=== PATIENT | female | born 1950 | race Two or more races ===

== ENCOUNTER 2020-12-20 07:59 | Outpatient (REF) | payer MEDICARE, SELFPAY ==
--- NOTE | ~2020-12-20 | MM_ITS ---
EXAMINATION: MM SCREENING DIGITAL BREAST TOMOSYNTHESIS, BILATERAL CLINICAL INFORMATION: Screening. Asymptomatic. The lifetime risk of breast cancer based on the Tyrer-Cuzick Model is 3%. COMPARISON: Mammography: 10/05/2019, 12/30/2017, 04/12/2016, 03/15/2015, 03/09/2014, 03/04/2013 TECHNIQUE: Digital breast tomosynthesis is performed in both the craniocaudal and mediolateral oblique views along with computer-aided detection (CAD). Synthesized 2D images are generated from the tomosynthesis. FINDINGS: There are scattered areas of fibroglandular density (ACR BI-RADS breast composition Category b). Breast tissue composition borders on predominantly fatty. Scattered stromal densities on left are stable. Neither breast shows abnormal calcifications. The bilateral axilla and skin contours are unremarkable. Right MLO view has asymmetric density upper breast mid depth likely summation artifact. There are also some stromal densities posterior outer right breast close to the film [id number]. Patient will be recalled for additional imaging. MM/MM tomosynthesis screening BI IMPRESSION: 1. Right: Asymmetric density upper quadrant on MLO view, likely summation artifact. 2. Left: No mammographic evidence of malignancy. ASSESSMENT: BI-RADS 0: Incomplete - Need Additional Imaging Evaluation RECOMMENDATION: 1. Additional views of the right breast (3D MLO-changed angle view; 3D ML; 3D exaggerated CC). 2. Targeted ultrasound if warranted after review of the additional views. 3. Radiology department staff will contact the patient for additional imaging. This patient's information was entered into a reminder system with a target due date for their next mammogram.
== END 2020-12-20 08:00 | disposition home or self-care (01) ==
LOC: HO.MAMMO 07:59
PROVIDERS: PCP Internal Medicine Geriatric Medicine; Visit Provider Internal Medicine Geriatric Medicine
DX: Z12.31 Encounter for screening mammogram for malignant neoplasm of breast (principal)
CPT/HCPCS: 77063; 77067

== ENCOUNTER 2020-12-29 13:23 | Outpatient (REF) | payer MEDICARE, SELFPAY ==
--- NOTE | ~2020-12-29 | MM_ITS ---
EXAMINATION: MM DIAGNOSTIC DIGITAL BREAST TOMOSYNTHESIS, RIGHT CLINICAL INFORMATION: Recall from screening for asymmetric density mid upper right breast on MLO view, suspected summation artifact. COMPARISON: Mammography: 12/20/2020, 10/05/2019, 12/30/2017, 04/12/2016 TECHNIQUE: Digital breast tomosynthesis is performed. 2D images are generated from the tomosynthesis. The following views are obtained: ML, MLO, exaggerated CC. FINDINGS: There are scattered areas of fibroglandular density (ACR BI-RADS breast composition Category b). The additional ML and MLO views show no persistent asymmetric density in the upper right breast. The stromal markings appear similar to prior studies. Finding on recent imaging was most likely summation artifact as suspected. Results are discussed with the patient at time of visit, using an industrial seamstress. MM/MM tomosynthesis added views R IMPRESSION: Additional views show no persistent asymmetric density upper right breast. No significant changes from prior exams. ASSESSMENT: BI-RADS 2: Benign RECOMMENDATION: Routine annual mammography screening. This patient's information was entered into a reminder system with a target due date for their next mammogram.
== END 2020-12-29 13:24 | disposition home or self-care (01) ==
LOC: HO.MAMMO 13:23
PROVIDERS: Visit Provider Internal Medicine Geriatric Medicine
DX: R92.2 Inconclusive mammogram (principal)
CPT/HCPCS: 77061; 77065

== ENCOUNTER → 2021-02-23 07:54 | Outpatient (REF) | payer MEDICARE, SELFPAY ==
--- NOTE | ~2021-02-23 | NM_ITS ---
Lexiscan Myocardial perfusion study Indication: Cardiomyopathy, chest pain, shortness of breath, assess for coronary disease and ischemia Technique: The patient was brought in for a Lexiscan perfusion study on 02/23/2021 and was injected 0.4 mg of Lexiscan intravenously. Within a minute of this injection 25 mCi of sestamibi was given intravenously. Images were obtained using the SPECT gamma camera interlaced with the gating device. Images were obtained in supine position. Resting perfusion study was performed on 02/26/2021. Patient was administered 25 mCi of sestamibi intravenously at rest. Images were then obtained in supine position. Total DLP 99mGy-cm. Images were processed with the software and compared side to side in short axis, horizontal long axis and vertical long axis views. Findings: Raw acquisition was reviewed. The stress perfusion study showed diminished tracer uptake at the distal septum and adjacent anterior septum. Similar pattern in the attenuation corrected images. The gated study shows diminished LV systolic function with calculated LVEF of 30%. LV cavity is dilated in size. The gated study shows globally diminished wall thickening and contraction of segments. Resting study shows diminished tracer uptake in the apical part of anterior septum. Pattern is similar with CT attenuation corrected images. Gating at rest reveals globally diminished contractility with ejection fraction at 20%. The findings are consistent with no reversible defects; fixed distal septal/anterior septal defect that could be from prior infarct versus artifactual. NM/NM raymond perf SPECT rest & str Impression: 1. Myocardial perfusion imaging study shows no evidence of any ischemia. Fixed defect in the distal septum and adjacent anterior septum that could be from prior infarct or artifactual. 2. Gated LVEF is 30% during stress and 20% during rest. Correlate with echocardiogram. 3. Transient ischemic dilatation not present. EKG component of the test reported separately.
--- NOTE | 2021-02-23 08:00 | CA_ITS ---
Acquisition Time: 2021-02-23 08:55:03 Total Exercise Time: 00:02:00 Test Indications: I44.7 LBBB Medications: Protocol: LEXISCAN Max HR: 130 BPM 87% of Pred: 149 BPM Max BP: 128/080 mmHG Max Work Load: 1.0 METS Pharmacological stress test with Lexiscan injection, while sitting and not moving, without anginal symptoms, without arrythmia, with normotensive response to injection, with nondiagnostic EKG for ischemia. In recovery she had an elevated heart rate and was treated with Aminophylline 75mg IVP to reverse lexiscan with improvement in heart rate. Nuclear images pending. Test reviewed with Dr Shukla. Referred By: Ezekiel Hadley Overread By: YESENIA QUAN
== END ==
LOC: HO.CARD 07:54
PROVIDERS: PCP Internal Medicine Geriatric Medicine; Visit Provider Internal Medicine Cardiovascular Disease
DX: I44.7 Left bundle-branch block, unspecified (principal); I42.9 Cardiomyopathy, unspecified; R07.9 Chest pain, unspecified; R06.02 Shortness of breath
CPT/HCPCS: 78452; 93017; A9500; J0280; J2785

== ENCOUNTER 2021-10-08 09:48 | Outpatient (REF) | payer MEDICARE, SELFPAY ==
--- NOTE | ~2021-10-08 | XR_ITS ---
EXAMINATION: XR CHEST CLINICAL INFORMATION: Shortness of breath COMPARISON: Previous chest x-ray March 2016 TECHNIQUE: 2 views of the chest were obtained. FINDINGS: The cardiac silhouette is upper normal in size but stable. The thoracic aorta is calcified and tortuous but appears unchanged. Hilar and mediastinal contours are otherwise unremarkable. The lungs are clear. There is no pleural effusion or pneumothorax. There are degenerative changes of the spine. XR/XR chest 2V IMPRESSION: No evidence for acute disease in the chest. Upper normal-size cardiac silhouette and calcified tortuous thoracic aorta similar to previous exam.
== END 2021-10-08 09:49 | disposition home or self-care (01) ==
LOC: HO.XRAY 09:48
PROVIDERS: PCP Internal Medicine Geriatric Medicine; Visit Provider Internal Medicine Geriatric Medicine
DX: R06.02 Shortness of breath (principal)
CPT/HCPCS: 71046

== ENCOUNTER 2022-01-15 14:38 | Outpatient (REF) | payer OTHER, SELFPAY ==
--- NOTE | 2022-01-15 | PFT_ITS ---
Forced vital capacity 76%, FEV1 75%, FEV1/FVC ratio is 75, [id number] 71%, and MVV 31%. Post bronchodilator therapy, there is no change. Total lung capacity 73%. Residual volume 67%. Diffusion capacity 51%. CONCLUSION: Moderately severe restrictive pulmonary disorder. No significant obstructive airway disorder. No response to bronchodilator therapy. Clinical correlation is recommended. MD NEDA Miguel/MODL / [id number]
--- NOTE | ~2022-01-15 | MM_ITS ---
EXAMINATION: MM SCREENING DIGITAL BREAST TOMOSYNTHESIS, BILATERAL CLINICAL INFORMATION: Screening. Asymptomatic. The lifetime risk of breast cancer based on the Tyrer-Cuzick Model is 3%. COMPARISON: Mammography: 12/29/2020, 12/20/2020, 10/05/2019 TECHNIQUE: Digital breast tomosynthesis is performed in both the craniocaudal and mediolateral oblique views along with computer-aided detection (CAD). Synthesized 2D images are generated from the tomosynthesis. FINDINGS: There are scattered areas of fibroglandular density (ACR BI-RADS breast composition Category b). The left breast is unremarkable. There is no developing density or interval mass or architectural abnormality. Neither breast shows abnormal calcifications. The skin contours are smooth. The right breast has new grouped fibronodular densities posterior upper outer quadrant approximately 10 cm from nipple overall area approximately 1.3 x 3.3 cm. The mid posterior upper outer quadrant has some accentuated stromal markings again seen, slightly increased in attenuation since prior imaging. Patient will be recalled for additional evaluation. MM/MM tomosynthesis screening BI IMPRESSION: Right: -New grouped fibronodular densities posterior upper outer quadrant. -Accentuated stromal markings mid posterior upper outer quadrant. Left: -No mammographic evidence of malignancy. ASSESSMENT: BI-RADS 0: Incomplete - Need Additional Imaging Evaluation RECOMMENDATION: 1. Additional views of the right breast (rolled CC, spot exaggerated CC, MLO, spot MLO). 2. Targeted ultrasound right breast. 3. Radiology department staff will contact the patient for additional imaging. This patient's information was entered into a reminder system with a target due date for their next mammogram.
== END 2022-01-15 14:39 | disposition home or self-care (01) ==
LOC: HO.RESP 14:38
PROVIDERS: PCP Internal Medicine Geriatric Medicine; Visit Provider Internal Medicine Geriatric Medicine
DX: R06.02 Shortness of breath (principal); F17.210 Nicotine dependence, cigarettes, uncomplicated; Z79.899 Other long term (current) drug therapy; Z12.31 Encounter for screening mammogram for malignant neoplasm of breast
CPT/HCPCS: 77063; 77067; 94060; 94727; 94729

== ENCOUNTER → 2022-01-18 20:26 | Outpatient (REF) | payer OTHER, SELFPAY | LOC: HO.SL 20:26 | PROVIDERS: PCP Internal Medicine Geriatric Medicine; Visit Provider Internal Medicine Geriatric Medicine | DX: G47.33 Obstructive sleep apnea (adult) (pediatric) (principal); G47.19 Other hypersomnia; R06.02 Shortness of breath; R06.83 Snoring | CPT/HCPCS: 95811 ==

== ENCOUNTER 2022-02-06 13:08 | Outpatient (REF) | payer OTHER, SELFPAY ==
--- NOTE | ~2022-02-06 | MM_ITS ---
EXAMINATION: MM DIAGNOSTIC DIGITAL BREAST TOMOSYNTHESIS, RIGHT US DIAGNOSTIC ULTRASOUND BREAST, RIGHT CLINICAL INFORMATION: Recall from screening for interval changes right breast mid posterior upper outer quadrant and posterior upper outer quadrant. COMPARISON: Mammography: 01/15/2022, 12/29/2020, 12/20/2020, 10/05/2019, 12/30/2017, 04/12/2016 TECHNIQUE: Digital breast tomosynthesis is performed. 2D images are generated from the tomosynthesis. The following views are obtained: Rolled CC x2, ML, spot exaggerated CC x2, spot MLO. Ultrasound right breast is targeted to the upper and outer quadrant and axilla. Grayscale imaging and color Doppler are performed without and with harmonics. FINDINGS: Mammography: There are scattered areas of fibroglandular density (ACR BI-RADS breast composition Category b). The additional views show new grouped fibronodular densities posterior upper outer breast approximately 10 cm from nipple representing change from prior study. The mid outer breast 6 cm from nipple shows some accentuated stromal markings without three-dimensional mass, or approximately 6 cm from nipple. Findings represent change from prior exams. Ultrasound: Ultrasound demonstrates scattered small hypoechoic nodularity under 0.7 cm 10-12 cm from nipple. There is no increased or decreased through transmission of sound. No internal color flow. Some of the nodularity appear irregular in shape, others macrolobulated. These likely correspond to the grouped nodularity on mammography. There is a vague irregular hypoechoic nodule 0.5 cm with surrounding hyperechogenicity 6-8 cm from nipple which may correspond to the subtle accentuated stromal marking on mammography. There is a benign node right axilla within 4 cm of the nodularity with normal gurpreet architecture and color flow. Management: Results are discussed with the patient at time of visit using an dance hall hostess. Ultrasound-guided core biopsy is recommended directed to two separate sites to allow for provider relations representative sampling of the multiple findings. Recommendation called to medical staff services coordinator (Misti) for Dr. Lehman on 02/06/2022. MM/MM tomosynthesis added views R IMPRESSION: -New grouped fibronodular densities posterior upper outer right breast. -Accentuated stromal markings without three-dimensional mass mid upper outer right breast. -Scattered small nonspecific nodularity and hypoechoic lesions on ultrasound. ASSESSMENT: BI-RADS 4: Suspicious RECOMMENDATION: Ultrasound-guided core biopsy directed to 2 separate sites to allow for provider relations representative sampling of the multiple findings.
--- NOTE | ~2022-02-06 | US_ITS ---
EXAMINATION: MM DIAGNOSTIC DIGITAL BREAST TOMOSYNTHESIS, RIGHT US DIAGNOSTIC ULTRASOUND BREAST, RIGHT CLINICAL INFORMATION: Recall from screening for interval changes right breast mid posterior upper outer quadrant and posterior upper outer quadrant. COMPARISON: Mammography: 01/15/2022, 12/29/2020, 12/20/2020, 10/05/2019, 12/30/2017, 04/12/2016 TECHNIQUE: Digital breast tomosynthesis is performed. 2D images are generated from the tomosynthesis. The following views are obtained: Rolled CC x2, ML, spot exaggerated CC x2, spot MLO. Ultrasound right breast is targeted to the upper and outer quadrant and axilla. Grayscale imaging and color Doppler are performed without and with harmonics. FINDINGS: Mammography: There are scattered areas of fibroglandular density (ACR BI-RADS breast composition Category b). The additional views show new grouped fibronodular densities posterior upper outer breast approximately 10 cm from nipple representing change from prior study. The mid outer breast 6 cm from nipple shows some accentuated stromal markings without three-dimensional mass, or approximately 6 cm from nipple. Findings represent change from prior exams. Ultrasound: Ultrasound demonstrates scattered small hypoechoic nodularity under 0.7 cm 10-12 cm from nipple. There is no increased or decreased through transmission of sound. No internal color flow. Some of the nodularity appear irregular in shape, others macrolobulated. These likely correspond to the grouped nodularity on mammography. There is a vague irregular hypoechoic nodule 0.5 cm with surrounding hyperechogenicity 6-8 cm from nipple which may correspond to the subtle accentuated stromal marking on mammography. There is a benign node right axilla within 4 cm of the nodularity with normal gurpreet architecture and color flow. Management: Results are discussed with the patient at time of visit using an hourly sign language interpreter. Ultrasound-guided core biopsy is recommended directed to two separate sites to allow for self pay representative sampling of the multiple findings. Recommendation called to medical assistant dermatology (iMsti) for Dr. Lehman on 02/06/2022. US/US breast RT limited IMPRESSION: -New grouped fibronodular densities posterior upper outer right breast. -Accentuated stromal markings without three-dimensional mass mid upper outer right breast. -Scattered small nonspecific nodularity and hypoechoic lesions on ultrasound. ASSESSMENT: BI-RADS 4: Suspicious RECOMMENDATION: Ultrasound-guided core biopsy directed to 2 separate sites to allow for self pay representative sampling of the multiple findings.
== END 2022-02-06 13:09 | disposition home or self-care (01) ==
LOC: HO.MAMMO 13:08
PROVIDERS: Visit Provider Internal Medicine Geriatric Medicine
DX: R92.2 Inconclusive mammogram (principal)
CPT/HCPCS: 76642; 77061; 77065

== ENCOUNTER 2022-02-08 09:18 | Outpatient (REF) | payer OTHER, SELFPAY ==
--- NOTE | ~2022-02-08 | US_ITS ---
EXAMINATION: ULTRASOUND GUIDED CORE BIOPSY BREAST (TWO SITES), RIGHT POST PROCEDURE DIGITAL MAMMOGRAM, RIGHT CLINICAL INFORMATION: Mammographic and ultrasound findings mid and posterior upper outer right breast for tissue sampling. COMPARISON: Mammography 02/06/2022, 01/15/2022, 12/29/2020, 12/20/2020, 10/05/2019; targeted right breast ultrasound 02/06/2022. FINDINGS: Proper informed consent is obtained from the patient after discussion of the procedure, potential risks and complications, and alternatives. Patient was given an opportunity for questions. The patient appeared to understand. The patient consented to the procedure and signed the consent form. Hospital provided mobile equipment mechanic assisted for consent and throughout the procedure. SPECIMEN A: LOCATION: Mid upper outer right breast, 6 cm from nipple. GUIDANCE: Ultrasound-guided; aseptic technique. LESION: Subtle hypoechoic lesion with irregular margins under 5 mm and surrounding mild increased echogenicity upper outer quadrant, 6 cm from nipple. APPROACH: Lateral medial. ANESTHESIA: 15 mL carbonated 1% lidocaine. DERMATOTOMY: Single skin nikia dermatotomy performed. NEEDLE: 14-gauge Achieve core biopsy device with 13.5-gauge co-axial guide needle. CORES: 5. CLIP: HydroMARK; shape: barrel. SPECIMEN B: New anesthesia and biopsy supplies are used. LOCATION: Posterior upper outer right breast, 11 cm from nipple. GUIDANCE: Ultrasound-guided; aseptic technique. LESION: Small hypoechoic nodularity posterior upper outer right breast under 8 mm with subtle surrounding mild increased echogenicity, 11 cm from nipple. APPROACH: Lateral medial. ANESTHESIA: 10 mL carbonated 1% lidocaine. DERMATOTOMY: A new skin nikia dermatotomy is performed to allow for the second site of biopsy. . NEEDLE: 14-gauge Achieve core biopsy device with 13.5-gauge co-axial guide needle. CORES: 7. CLIP: HydroMARK; shape: open coil. POST PROCEDURE DIGITAL MAMMOGRAM: The post biopsy mammogram is performed in separate room using separate digital mammography equipment from the biopsy procedure. Exaggerated CC x3 and MLO views are obtained. There are scattered areas of fibroglandular density (breast composition category: b). The clip markers are in position. No gross hematoma. The patient tolerated the procedure well. No immediate complications. Home instructions reviewed with the patient. Final pathology results are pending. US/US breast ndl core biopsy RT IMPRESSION: 1. Status post ultrasound-guided core biopsy right breast at 2 sites, mid upper outer quadrant and posterior upper outer quadrant. 2. Pathology pending. An addendum report will be issued.
[2022-02-08] MEDS: Lidocaine HCl 1 % 20 ML VIAL 25 ML SUBCUT (11:47)
[2022-02-08] MEDS: Sodium Bicarbonate 8.4% 50 MEQ/50 ML VIAL SUBCUT (11:49)
== END 2022-02-08 09:19 | disposition home or self-care (01) ==
LOC: HO.MAMMO 09:18
PROVIDERS: PCP Internal Medicine Geriatric Medicine; Visit Provider Surgery
DX: C50.411 Malignant neoplasm of upper-outer quadrant of right female breast (principal); Z17.0 Estrogen receptor positive status [ER+]
CPT/HCPCS: 19083; 77062; 77065; 88305; 88360; 99202; A4648

== ENCOUNTER → 2022-02-13 09:23 | Outpatient (BNVA) | payer OTHER, SELFPAY | PROVIDERS: PCP Internal Medicine Geriatric Medicine; Visit Provider Surgery | DX: C50.411 Malignant neoplasm of upper-outer quadrant of right female breast (principal); Z17.0 Estrogen receptor positive status [ER+]; Z98.890 Other specified postprocedural states | CPT/HCPCS: 99212 ==

== ENCOUNTER 2022-03-15 12:20 | Outpatient (REF) | payer OTHER, SELFPAY ==
--- NOTE | ~2022-03-15 | MR_ITS ---
EXAMINATION: MR BREAST WITHOUT AND WITH CONTRAST, BILATERAL CLINICAL INFORMATION: The final pathology results from ultrasound-guided right breast biopsy mid, upper, outer 6 cm from nipple is invasive ductal carcinoma. The final pathology result from ultrasound-guided biopsy right breast, posterior, upper, outer 11 cm from nipple is invasive ductal carcinoma. MRI for multifocal disease. COMPARISON: None Mammography (nondiagnostic monitor review): 01/15/22. TECHNIQUE: A 1.5 T system and a dedicated breast coil. T1-weighted sequences without fat-saturation were obtained prior to the administration of contrast. Fat-saturated T1 and T2-weighted sequences were also acquired. The patient received 8 mL of IV gadolinium-based contrast, Gadavist. Multiple sequential dynamic T1-weighted sequences were obtained through both breasts with fat-saturation. Subtracted images were reviewed. CAD postprocessing with 3-D reconstructions, maximum intensity projections and kinetic analysis was performed by the interpreting radiologist at an independent workstation and reviewed as a portion of this exam. FINDINGS: Amount of Remaining Fibroglandular Signal: There are scattered areas of fibroglandular tissue (ACR BI-RADS breast composition category B).* Background Parenchymal Enhancement: Moderate Symmetry of Background Enhancement: Symmetric RIGHT BREAST: There is extensive heterogeneous nonmass enhancement spanning between the tissue marker clips in the upper outer right breast consistent with extensive malignancy spanning at least 6 cm from anterior to posterior and at least 4 cm from medial to lateral. The abnormal enhancement abuts but does not definitely invade the chest wall. The abnormal enhancement extends to within 8 mm of the nearest skin surface laterally but there is no definite skin thickening or abnormal skin enhancement. The enhancement extends to within 4.8 cm of the nipple. There is susceptibility artifact associated with a fairly circumscribed oval enhancing mass. This could be secondary to biopsy of an intramammary lymph node which was involved by regional metastasis. There are several other lymph nodes in the tail of the breast and axilla which are not enlarged by size criteria. There is however a prominent axillary lymph node (series 101, image 32). Masses: There are no other suspicious enhancing masses. Non-mass Enhancement: There is no other suspicious non-mass enhancement. Focus: There are a few nonspecific enhancing foci Non-enhancing Findings: Associated findings: Susceptibility artifact. Kinetic Curve Assessment: Initial Phase: Extensive abnormal color signal throughout the upper outer right breast Delayed Phase: There are areas of washout present in the upper outer right breast LEFT BREAST: There are no suspicious findings. Masses: There are no suspicious enhancing masses. Non-mass Enhancement: There is no suspicious non-mass enhancement. Focus: There are several tiny nonspecific enhancing foci Non-enhancing Findings: Associated Findings: There are no suspicious associated findings. Kinetic Curve Assessment: Initial Phase: There are no areas of suspicious color signal. Delayed Phase: There are no areas of washout kinetics. The left axillary lymph nodes are morphologically normal. No suspicious internal mammary lymph nodes are seen. There is a crescent-shaped signal abnormality in the medial right upper mediastinum abutting the ascending aorta which measures 3.5 x 1.7 cm. This is intermediate signal on anatomic series and somewhat intermediate signal on fluid sensitive series. This does not appear to significantly enhance. MR/MR breast BI wo/w con IMPRESSION: Extensive nonmass enhancement with areas of washout spanning the tissue between the tissue markers in the upper outer right breast. I suspect cancer involves this entire area. The enhancement extends close to the skin and chest wall fascia without definite evidence of invasion. No convincing involvement of the nipple areolar complex. I suspect some intramammary lymph node involvement. There is at least one enlarged axillary lymph node. Consider whether ultrasound-guided sampling would alter management There is a signal abnormality abutting the ascending aorta. Although this does not enhance is nonspecific. If there is no previous chest CT I recommend a chest CT with contrast for further characterization ASSESSMENT: Right Breast: ACR BI-RADS 6: Known biopsy-proven malignancy. Left Breast: ACR BI-RADS 2: Benign finding. RECOMMENDATIONS: Take appropriate action. Consider chest CT for signal abnormality abutting the ascending aorta which does not enhance and is felt relatively unlikely to represent an aggressive malignancy
== END 2022-03-15 12:21 | disposition home or self-care (01) ==
LOC: HO.MRI 12:20
PROVIDERS: Visit Provider Internal Medicine
DX: C50.411 Malignant neoplasm of upper-outer quadrant of right female breast (principal)
CPT/HCPCS: 77049; A9585

== ENCOUNTER → 2022-03-21 09:08 | Outpatient (BNVA) | payer OTHER, SELFPAY | PROVIDERS: PCP Internal Medicine Geriatric Medicine; Visit Provider Surgery | DX: C50.411 Malignant neoplasm of upper-outer quadrant of right female breast (principal); Z17.0 Estrogen receptor positive status [ER+]; Z98.890 Other specified postprocedural states | CPT/HCPCS: 99212 ==

== ENCOUNTER 2022-04-09 08:21 | Outpatient (REF) | payer OTHER, SELFPAY ==
[2022-04-09 09:24] LABS: Blood Urea Nitrogen 17 mg/dL (9-16); Estimated Glomerular Filt Rate 51
== END 2022-04-09 08:22 | disposition home or self-care (01) ==
LOC: HO.LAB 08:21
PROVIDERS: PCP Internal Medicine Geriatric Medicine; Visit Provider Internal Medicine
DX: C50.911 Malignant neoplasm of unspecified site of right female breast (principal)
CPT/HCPCS: 36415; 82565; 84520

== ENCOUNTER 2022-04-10 07:57 | Outpatient (REF) | payer OTHER, SELFPAY ==
--- NOTE | ~2022-04-10 | CT_ITS ---
EXAMINATION: CT CHEST WITH CONTRAST CLINICAL INFORMATION: Breast cancer. Follow-up mediastinal mass breast MRI COMPARISON: Breast MRI February 2022 TECHNIQUE: Multidetector volumetric CT imaging of the chest was obtained after the administration of 65 mL of Omnipaque 350 intravenous contrast without immediate adverse reactions. Axial MIP volume rendering provided. Sagittal and coronal reformatted images were obtained. This CT examination was performed using dose optimization techniques as appropriate, variously including the following: *Automated exposure control *Adjustment of mA and/or kV according to patient size (this includes techniques or standardized protocols for targeted exams where dose is matched to indication/reason for exam; i.e. extremities or head) *Use of iterative reconstruction technique DLP: 140 mGy-cm FINDINGS: LUNGS: The lungs are clear with no evidence of inflammation or nodules. MEDIASTINUM: The heart size is normal. There does not appear to be significant coronary artery calcification. There is no pericardial effusion. The thoracic aorta is tortuous. The distal ascending thoracic aorta is dilated measuring up to 4.3 cm. The aortic arch is dilated injuring up to 3.4 cm. There is luminal irregularity axial image 11 series 3 questionable for small ulcer or irregular appearing plaque in the aortic arch. Descending thoracic aorta appears tortuous but normal in caliber. There is a small amount of low-attenuation crescent-shaped soft tissue seen surrounding the ascending thoracic aorta probably representing fluid. Hounsfield units measure 15 following post contrast. No definite adenopathy. PLEURA: There is no pleural effusion. No pleural mass or thickening. AXILLA: Right breast findings as per recent MRI. Normal-appearing left chest wall and axilla. UPPER ABDOMEN: There is a stenosis at the origin of the celiac axis is stenotic station. OSSEOUS STRUCTURES: There are old or healing left anterior second through fifth rib fractures. There are degenerative changes of the spine. CT/CT chest w IV con IMPRESSION: Dilated distal aortic ascending thoracic aorta and aortic arch. Question small ulceration in the aortic arch versus ulcer. Small amount of fluid seen in the mediastinum surrounding the ascending thoracic aorta. Cardiology or vascular consultation recommended. 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 Old or healing left rib fractures. Fleischner guidelines were followed.
[2022-04-10] MEDS: iohexoL 350 MG/ML 100 ML INFUS..BTL IV (08:48)
== END 2022-04-10 07:58 | disposition home or self-care (01) ==
LOC: HO.CT 07:57
PROVIDERS: Visit Provider Internal Medicine
DX: C50.411 Malignant neoplasm of upper-outer quadrant of right female breast (principal); R22.2 Localized swelling, mass and lump, trunk
CPT/HCPCS: 71260; Q9967

== ENCOUNTER → 2022-04-23 11:08 | Outpatient (BNVA) | payer OTHER, SELFPAY | PROVIDERS: PCP Internal Medicine Geriatric Medicine; Visit Provider Surgery | DX: C50.411 Malignant neoplasm of upper-outer quadrant of right female breast (principal) | CPT/HCPCS: Q3014 ==

== ENCOUNTER → 2022-07-11 11:17 | Outpatient (BNVA) | payer OTHER, SELFPAY | PROVIDERS: PCP Internal Medicine Geriatric Medicine; Visit Provider Surgery | DX: C50.411 Malignant neoplasm of upper-outer quadrant of right female breast (principal) | CPT/HCPCS: 99212 ==

== ENCOUNTER 2022-08-14 09:26 | Outpatient (REF) | payer OTHER, SELFPAY ==
--- NOTE | ~2022-08-14 | MR_ITS ---
EXAMINATION: MR BREAST WITHOUT AND WITH CONTRAST, BILATERAL CLINICAL INFORMATION: Known right breast carcinoma. Assess response to hormonal therapy. COMPARISON: Bilateral breast MRI 03/15/2022 TECHNIQUE: Imaging was performed with a dedicated breast coil. Prior to the administration of contrast, bilateral axial T1 and bilateral axial T2 weighted sequences were obtained. After the uneventful administration of?8 mL of Gadavist, dynamic contrast-enhanced VIBRANT series through the breasts in the axial plane were performed. Subtracted images were performed and reviewed. A delayed sagittal sequence through both breasts was acquired. Additionally, CAD post-processing, including maximum intensity projections, 3-D reconstructions and kinetic analysis, were performed an independent workstation and reviewed by the interpreting radiologist is a portion of this exam. FINDINGS: The patient's fibroglandular tissue demonstrates no significant background enhancement. LEFT BREAST: No suspicious masslike or non-masslike enhancement. No abnormal skin thickening or nipple retraction. No abnormal architectural distortion. Review of the T2 weighted images demonstrates no fibrocystic changes or dilated ducts. Review of kinetic images reveals no additional findings. RIGHT BREAST: There is a clip containing nonmasslike area of abnormal enhancement, correlating to the known right breast malignancy in the 10:00 position, posterior depth, this currently measures 4.7 x 1.6 cm in size, overall the extent of abnormal enhancement and abnormal tissue in this location has decreased. The enhancing portion of this mass extends to within 0.9 cm of the pectoralis fashion there is persistent skin retraction, slightly less pronounced than on the prior exam. There is no new enhancing mass or nipple retraction present. There is no suspicious internal mammary chain or axillary adenopathy. Again noted is intermediate fluid signal contour abnormality anterior to the asymmetry and ending aorta, when compared to supine chest CT, position of this finding has change with prone patient positioning, suggesting this is mobile fluid within a pericardial effusion. MR/MR breast BI wo/w con IMPRESSION: Interval decrease in size of right breast carcinoma in the 10:00 position. ASSESSMENT: LEFT BREAST: BI-RADS 1-Negative RIGHT BREAST: BI-RADS 6, known malignancy is present. RECOMMENDATIONS: Persistent, irregularly shaped nonmasslike enhancement, in the 10:00 position, consistent with known right breast carcinoma, the area of enhancement has decreased in size as compared to prior of February 2022.
== END 2022-08-14 09:27 | disposition home or self-care (01) ==
LOC: HO.MRI 09:26
PROVIDERS: PCP Internal Medicine Geriatric Medicine; Visit Provider Internal Medicine
DX: C50.911 Malignant neoplasm of unspecified site of right female breast (principal)
CPT/HCPCS: 77049; A9585

== ENCOUNTER → 2022-11-05 09:14 | Outpatient (BNVA) | payer OTHER, SELFPAY | PROVIDERS: PCP Internal Medicine Geriatric Medicine; Visit Provider Surgery | DX: C50.919 Malignant neoplasm of unspecified site of unspecified female breast (principal) | CPT/HCPCS: 99212 ==

== ENCOUNTER 2023-06-24 10:06 | Outpatient (REF) | payer OTHER, SELFPAY ==
[2023-06-24 12:22] LABS: TSH reflex Free T4 2.55 uIU/mL (0.32-4.0)
== END 2023-06-24 10:07 | disposition home or self-care (01) ==
LOC: HO.HHCL 10:06
PROVIDERS: Visit Provider Internal Medicine Geriatric Medicine
DX: E03.9 Hypothyroidism, unspecified (principal)
CPT/HCPCS: 36415; 84443

== ENCOUNTER 2023-08-29 12:49 | Outpatient (REF) | payer OTHER, SELFPAY ==
[2023-08-29 16:53] LABS: Anion Gap 15 (12-20); Blood Urea Nitrogen 10 mg/dL (9-16); Calcium 9.4 mg/dL (8.4-10.2); Carbon Dioxide 25 mmol/L (22-29); Chloride 100 mmol/L (96-108); Estimated Glomerular Filt Rate > 60; Glucose Random 174 mg/dL (60-115); Potassium 4.3 mmol/L (3.3-5.1); Sodium 136 mmol/L (135-145)
[2023-08-29 16:58] LABS: Thyroid Stimulating Hormone 6.09 uIU/mL (0.32-4.0)
== END 2023-08-29 12:50 | disposition home or self-care (01) ==
LOC: HO.HHCL 12:49
PROVIDERS: Visit Provider Internal Medicine Geriatric Medicine
DX: E03.9 Hypothyroidism, unspecified (principal); I10 Essential (primary) hypertension
CPT/HCPCS: 36415; 80048; 84443

== ENCOUNTER 2024-01-19 10:25 | Outpatient (REF) | payer OTHER, SELFPAY ==
[2024-01-19 12:18] LABS: MANUAL DIFF FLAG NO
[2024-01-19 12:26] LABS: Basophils Absolute Auto 0.1 X10*3/uL (0.0-0.2); Basophils Percent Auto 1.5 % (0-2); Eosinophils Absolute Auto 0.1 X10*3/uL (0.0-0.4); Eosinophils Percent Auto 1.3 % (0-4); Hematocrit 30.1 % (37.0-47.0); Hemoglobin 11.1 g/dl (12.0-16.0); Imm Gran Abs Auto 0.02 X10*3/uL (0.00-0.03); Imm Gran Pct Auto 0.5 % (0.0-0.4); Lymphocytes Percent Auto 26.7 % (20-40); Mean Corpuscular HGB Conc 36.9 g/dl (31.0-35.0); Mean Corpuscular Hemoglobin 39.2 pg (27.0-33.0); Mean Corpuscular Volume 106.4 fL (80.0-98.0); Monocytes Absolute Auto 0.3 X10*3/uL (0.1-1.2); Monocytes Percent Auto 8.2 % (2-11); Neutrophils Absolute Auto 2.4 x10*3/uL (2.0-8.3); Neutrophils Percent Auto 61.8 % (45-73); Red Blood Count 2.83 X10*6/uL (4.20-5.50); Red Cell Distribution Width 13.5 % (11.0-16.0); White Blood Count 3.9 X10*3/uL (4.8-10.8)
[2024-01-19 12:45] LABS: Mean Platelet Volume 10.4 fL (9.4-12.3); Platelet Count 91 X10*3/uL (160-400)
[2024-01-19 12:46] LABS: Alanine Aminotransferase 8 U/L (0-31); Albumin Level 3.7 g/dL (3.5-5.0); Alkaline Phosphatase 63 U/L (39-117); Anion Gap 12 (12-20); Aspartate Amino Transferase 17 U/L (5-31); Bilirubin Total 1.1 mg/dL (0.0-1.0); Blood Urea Nitrogen 11 mg/dL (9-16); Calcium 9.2 mg/dL (8.4-10.2); Carbon Dioxide 26 mmol/L (22-29); Chloride 106 mmol/L (96-108); Cholesterol 253 mg/dL (<200); Estimated Average Glucose 97 mg/dL; Estimated Glomerular Filt Rate 43; Glucose Random 111 mg/dL (60-115); HDL Cholesterol 58 mg/dL (>40); LDL Cholesterol Calculated 160 mg/dL (<100); Potassium 3.6 mmol/L (3.3-5.1); Sodium 140 mmol/L (135-145); Total Protein 7.7 g/dL (6.5-8.0); Triglycerides 177 mg/dL (<150)
[2024-01-19 12:56] LABS: ~HepC Num1 0.19 S/CO (0.00-0.79); ~Hepatitis C Antibody Nonreactive (Nonreactive)
[2024-01-19 13:18] LABS: TSH reflex Free T4 19.04 uIU/mL (0.32-4.0)
[2024-01-19 15:46] LABS: Free T4 (Free Thyroxine) 0.84 ng/dL (0.71-1.85)
== END 2024-01-19 10:26 | disposition home or self-care (01) ==
LOC: HO.HHCL 10:25
PROVIDERS: Visit Provider Internal Medicine Geriatric Medicine
DX: R73.9 Hyperglycemia, unspecified (principal); C50.911 Malignant neoplasm of unspecified site of right female breast; E03.9 Hypothyroidism, unspecified; I50.22 Chronic systolic (congestive) heart failure; Z11.59 Encounter for screening for other viral diseases
CPT/HCPCS: 36415; 80053; 80061; 83036; 84439; 84443; 85025; 86803

== ENCOUNTER 2024-04-30 11:39 | Outpatient (REF) | payer OTHER, SELFPAY ==
--- NOTE | ~2024-04-30 | XR_ITS ---
EXAMINATION: XR HAND, RIGHT CLINICAL INFORMATION: trigger finger, middle finger COMPARISON: None available. TECHNIQUE: PA, lateral, and oblique views of the right hand. FINDINGS: The bones and soft tissues are normal. No fracture. Alignment is anatomic. Joint spaces are maintained. No erosions or soft tissue calcifications. XR/XR hand RT min 3V IMPRESSION: Normal right hand. Electronically signed by: Faith Mack DO 04/30/2024 01:50 PM EDT
--- NOTE | ~2024-04-30 | XR_ITS ---
EXAMINATION: XR HAND, LEFT CLINICAL INDICATION: Cloth Handler finger, middle finger. COMPARISON: None. TECHNIQUE: 3 views of the left hand. FINDINGS: The bones and soft tissues appear unremarkable. No fracture identified. Alignment is anatomic. Joint spaces appear maintained. No erosions or soft tissue calcifications. XR/XR hand LT min 3V IMPRESSION: Normal plain film examination of the right hand. Electronically signed by: Sulaiman Alvarez MD 05/03/2024 02:05 PM EDT
== END 2024-04-30 11:40 | disposition home or self-care (01) ==
LOC: HO.HHCX 11:39
PROVIDERS: Visit Provider Internal Medicine Geriatric Medicine
DX: M65.332 Trigger finger, left middle finger (principal); M65.331 Trigger finger, right middle finger
CPT/HCPCS: 73130

== ENCOUNTER 2024-07-01 11:35 | Outpatient (REF) | payer OTHER, SELFPAY ==
[2024-07-01 12:51] LABS: MANUAL DIFF FLAG NO
[2024-07-01 13:08] LABS: Basophils Absolute Auto 0.1 X10*3/uL (0.0-0.2); Basophils Percent Auto 0.9 % (0-2); Eosinophils Absolute Auto 0.2 X10*3/uL (0.0-0.4); Eosinophils Percent Auto 2.5 % (0-4); Hematocrit 38.7 % (37.0-47.0); Imm Gran Abs Auto 0.04 X10*3/uL (0.00-0.03); Imm Gran Pct Auto 0.5 % (0.0-0.4); Lymphocytes Absolute Auto 1.4 X10*3/uL (1.2-4.9); Lymphocytes Percent Auto 17.7 % (20-40); Mean Corpuscular HGB Conc 33.6 g/dl (31.0-35.0); Mean Corpuscular Hemoglobin 33.9 pg (27.0-33.0); Mean Platelet Volume 11.1 fL (9.4-12.3); Monocytes Absolute Auto 0.7 X10*3/uL (0.1-1.2); Monocytes Percent Auto 8.5 % (2-11); Neutrophils Absolute Auto 5.6 x10*3/uL (2.0-8.3); Neutrophils Percent Auto 69.9 % (45-73); Platelet Count 140 X10*3/uL (160-400); Red Blood Count 3.83 X10*6/uL (4.20-5.50)
[2024-07-01 13:23] LABS: Anion Gap 13 (12-20); Blood Urea Nitrogen 17 mg/dL (9-16); Calcium 9.3 mg/dL (8.4-10.2); Carbon Dioxide 28 mmol/L (22-29); Chloride 103 mmol/L (96-108); Estimated Glomerular Filt Rate 52; Glucose Random 115 mg/dL (60-115); Potassium 4.5 mmol/L (3.3-5.1); Sodium 139 mmol/L (135-145)
[2024-07-01 14:12] LABS: Free T4 (Free Thyroxine) 0.54 ng/dL (0.71-1.85)
== END 2024-07-01 11:36 | disposition home or self-care (01) ==
LOC: HO.HHCL 11:35
PROVIDERS: Visit Provider Internal Medicine Geriatric Medicine
DX: E03.9 Hypothyroidism, unspecified (principal); I50.20 Unspecified systolic (congestive) heart failure; D61.818 Other pancytopenia
CPT/HCPCS: 36415; 80048; 84439; 84443; 85025

== ENCOUNTER 2024-12-07 10:42 | Outpatient (REF) | payer OTHER, SELFPAY ==
[2024-12-07 11:28] LABS: MANUAL DIFF FLAG NO
--- OUTSIDE RECORDS SUMMARY | 2024-12-07 11:57 | XMS_ITS | Encounter Summary ---
Author Organization [employer] Address [address] [place] [address] [address] [place] [address] Care Team Providers Care Link Machine Operator Name Role Phone Name, Wilder DE LA TORRE Primary Care Provider [phone] Reason for Visit * Reason Comments Med Refill Encounter Details Date Type Department Care Team (Late st Contact Info) Description 01/17/2023 Refill [facility] MEDICINE [address] [place], [place] [phone] Name, MD Wilder [address] [place] [address] Hypothyroidism, unspecified type Social History Tobacco Use Types Packs/Day Years Used Date Smoking Tobacco: Former Cigarettes Q uit: 2020 Passive Smoke Exposure: Current Smokeless Tobacco: Never Alcohol Use Standard Drinks/Week Comments Never 0 (1 standard drink = 0.6 oz pur e alcohol) Depression Answer Date Recorded Patient Health Questionnaire-2 Score 0 07/31/2022 Comments Unknown Sex and Gender Information Value Date Recorded Sex Assigned at Female 05/27/2022 10:26 AM EDT Legal Sex Female 10:26 AM EDT Gender Identity Female 05/27/2022 10:26 AM EDT Sexual Orientation Straight 05/27/2022 10 :26 AM EDT documented as of this encounter Plan of Treatment Not on file documented as of this encounter Visit Diagnoses Diagnosis Hypothyroidism, unspecified type documented in this encounter Care Teams Link Machine Operator Relationship Specialty Start Date End Date Name, MD Wilder [address] [place] [address] [id number] PCP - General Family Medicine 4/7/16 documented as of this encounter
--- OUTSIDE RECORDS SUMMARY | 2024-12-07 11:57 | XMS_ITS | Encounter Summary ---
Author Organization [employer] Address [address] [place] [address] [address] [place] [address] Care Team Providers Care Skilled Nursing Facility Counselor Name Role Phone Name, Wilder DE LA TORRE Primary Care Provider [phone] Reason for Visit * Reason Comments Med Refill Encounter Details Date Type Department Care Team (Late st Contact Info) Description 01/07/2023 Refill [facility] MEDICINE [address] [place], [place] [phone] Name, MD Wilder [address] [place] [address] Hypothyroidism, unspecified type Social History Tobacco Use [...] type documented in this encounter Care Teams Skilled Nursing Facility Counselor Relationship Specialty Start Date End Date Name, MD Wilder [address] [place] [address] [id number] PCP - General Family Medicine 4/7/16 documented as of this encounter
--- OUTSIDE RECORDS SUMMARY | 2024-12-07 11:57 | XMS_ITS | Encounter Summary ---
Author Organization [employer] Address [address] [facility] [address] [place] [address] Care Team Providers Care Reinforcement Maker Name Role Phone Name, Wilder DE LA TORRE Primary Care Provider [phone] Encounter Details Date Type Department Care Team ([facility] st Contact Info) Description 06/13/2023 Abstract [facility] MEDICINE [address] [place] [address] Misti Glynn Social History Tobacco Use Types Packs/Day Years Used Date Smoking Tobacco: Former Cigarettes Q uit: 2020 Passive Smoke Exposure: Current Smokeless Tobacco: Never Alcohol Use Standard Drinks/Week Comments Never 0 (1 standard drink = 0.6 oz pur e alcohol) Housing Stability Answer Date Recorded What is your housing situation today? I have kirk hernandez 05/28/[address] you li ve. Do you have problems with any of the following? None of the above 05/28/2023 Food Insecurity Answer Date Recorded Within the past 12 months, y ou worried that your food would run out before you got money to buy more: Never True 05/28/2023 Within the past 12 months,th e food you bought just didn't last and you didn't have enough money to get more: Never True 07/2022 Transportation Answer Date Recorded In the past 12 months, has l ack of transportation kept you from medical appts, meetings, work or from getting things needed for daily living? No 05/28/2023 Utilities Answer Date Recorded In the past 12 months, has t he electric, gas, oil or water company threatened to shut off services in your home? No 05/28/2023 Depression Answer Date Recorded Patient Health Questionnaire-2 [...] documented as of this encounter Visit Diagnoses Not on filedocumented in this encounter Care Teams Reinforcement Maker Relationship Specialty Start Date End Date Name, MD Wilder [address] [place] [address] PCP - General Family Medicine 11/02/15 documented as of this encounter
--- OUTSIDE RECORDS SUMMARY | 2024-12-07 11:57 | XMS_ITS | Encounter Summary ---
Author Organization [employer] Address [address] [facility] [address] [place] [address] Care Team Providers Care Mason Tender Restoration Labor Name Role Phone Name, Wilder DE LA TORRE Primary Care Provider [phone] Reason for Visit * Reason Onset Date Comments Med Refill 10/08/2023 Encounter Details Date Type Department Care Team ([facility] st Contact Info) Description 10/08/2023 Telephone [facility] MEDICINE [address] [place], [place] [phone] Name, MD Wilder [address] [place] [address] Med Refill Social History Tobacco Use Types Packs/Day Years Used Date Smoking Tobacco: Former Cigarettes Q uit: 2020 Passive Smoke Exposure: Current Smokeless Tobacco: Never Alcohol Use Standard Drinks/Week Comments Never 0 (1 standard drink = 0.6 oz pur e alcohol) Depression Answer Date Recorded Patient Health Questionnaire-9 Score 0 08/29/2023 Patient Health Questionnaire-9 Score 0 08/29/2023 Last PHQ-9: Questionnaire Data Not on file 0 08/29/2023 Housing Stability Answer Date Recorded What is your housing situation today? I have kirk hernandez 08/29/[address] you li ve. Do you have problems with any of the following? None of the above 08/29/2023 Food Insecurity Answer Date Recorded Within the past 12 months, y ou worried that your food would run out before you got money to buy more: Never True 08/29/2023 Within the past 12 months,th e food you bought just didn't last and you didn't have enough money to get more: Never True 08/2023 Transportation Answer Date Recorded In the past 12 months, has l ack of transportation kept you from medical appts, meetings, work or from getting things needed for daily living? No 08/29/2023 Utilities Answer Date Recorded In the past 12 months, has t he electric, gas, oil or water company threatened to shut off services in your home? No 08/29/2023 Depression Answer Date Recorded Patient Health Questionnaire-2 Score 0 08/29/2023 Comments Unknown Sex and Gender Information Value Date Recorded Sex Assigned at Female 05/27/2022 10:26 AM EDT Legal Sex Female 10:26 AM EDT Gender Identity Female 05/27/2022 10:26 AM EDT Sexual Orientation Straight 05/27/2022 10 :26 AM EDT documented as of this encounter Miscellaneous Notes * Telephone Encounter - Yara Huerta LPN - 10/08/2023 10:38 AM EDT Medication isn't prescribed by PCP. * Telephone Encounter - Saeid Rodrigues - 10/08/2023 10:35 AM EDT TC from pt requesting medication refill. Medications needing refill : carvedilol (Coreg) 6.25 MG tablet To be sent to: [id number] documented in this encounter Plan of Treatment Not on file documented as of this encounter Visit Diagnoses Not on filedocumented in this encounter Additional Health Concerns Assessment Noted Time PHQ-9 Depression Total Score: 0 08/29/19 24 11:32 AM EST documented as of this encounter Care Teams Mason Tender Restoration Labor Relationship Specialty Start Date End Date Name, MD Wilder [address] [place] [id number] PCP - General Family Medicine 11/02/15 documented as of this encounter
--- OUTSIDE RECORDS SUMMARY | 2024-12-07 11:57 | XMS_ITS | Clinical Summary ---
Author Organization [employer] Address [address] [facility] 7t [place] [address] Care Team Providers Care Public Health Registrar Name Role Phone Name, Wilder DE LA TORRE Primary Care Provider [phone] Allergies No known active allergies Medications nitroglycerin (Nitrostat) 0.[address] 1 tablet by sublingual route at 1st sign of attack; may repeat every 5 minutes up to 3 tabs; if no relief call 911 05/03/20 21 Active melatonin 5 MG tablet Take 1 tablet by mouth at bedtime. Active anastrozole (Arimidex) 1 MG chemo tablet Take 1 tablet by mouth Once per day. 05/16/20 23 Active furosemide (Lasix) 40 MG tablet Take 1 tablet by mouth Once per day. 03/03/20 24 Active levothyroxine (Synthroid) 125 MCG tablet Take 1 tablet (125 mcg) by mouth before breakfast. 30 tablet 07/02/20 24 025 Active atorvastatin (Lipitor) 40 MG tablet Take 1 tablet (40 mg) by mouth Once per day. 30 tablet 09/07/19 25 026 Active carvedilol (Coreg) 6.25 MG tabletIndicati ons:HFrEF (heart failure with reduced ejection fraction) (CMS/HCC) Take 1 tablet (6.25 mg) by mouth with breakfast and with evening meal. 60 tablet 12/08/19 25 026 Active sacubitril-juan manuel sartan (Entresto) 97-103 MG tabletIndicati ons:HFrEF (heart failure with reduced ejection fraction) (CMS/HCC) Take 1 tablet by mouth 2 times daily. 180 tablet 12/08/19 25 Active sertraline (Zoloft) 50 MG tabletIndicati ons:Depressive disorder Take 1 tablet (50 mg) by mouth Once daily. 30 tablet 3 12/08/19 25 025 Active sertraline (Zoloft) 50 MG tablet Take 50 mg by mouth Once daily. 025 Discontinued(Re order (will not trigger notification to Pharmacy)) carvedilol (Coreg) 6.25 MG tabletIndicati ons:Systolic congestive heart failure, unspecified HF chronicity (CMS/HCC) Take 1 tablet (6.25 mg) by mouth with breakfast and with evening meal. 60 tablet 11 09/07/19 25 025 Discontinued(Re order (will not trigger notification to Pharmacy)) sacubitril-juan manuel sartan (Entresto) 97-103 MG tabletIndicati ons:Systolic congestive heart failure, unspecified HF chronicity (CMS/HCC) Take 1 tablet by mouth 2 times daily. 180 tablet 09/07/19 25 025 Discontinued Entresto 97-103 MG tabletIndicati ons:Systolic congestive heart failure, unspecified HF chronicity (CMS/HCC) TAKE 1 TABLET BY MOUTH TWICE DAILY 180 tablet 11/23/19 25 025 Discontinued(Re order (will not trigger notification to Pharmacy)) Active Problems Problem Noted Date Diagnosed Date Hypertension 03/11/2024 Mild major depression 06/24/2023 06/24/2023 Normally functioning cardiac pacemaker present 1 08/24/2022 06/24/2023 S/P right mastectomy 06/24/2023 Class 1 obesity 11/19/2022 ICD (implantable cardioverter-defibrillator) in place 11/19/2022 Left bundle branch block 07/25/2022 Infiltrating ductal carcinoma of breast 03/06/20 22 Overview (07/01/2024): Right breast invasive ductal carcinoma 01/2022 She presented with abnormal screening mammography in December 2021. Right breast showed new grouped fibronodular densities in the posterior upper outer quadrant, targeted ultrasound and additional views performed 02/06/2022 showed small hypoechoic nodularity under 0.7 cm 10-12 cm from nipple. Another irregular hypoechoic nodule 0.5 cm with surrounding hyperechogenicity 6- 8 cm from nipple. Ultrasound-guided core biopsy of right breast mass at 11:00 o'clock position, from nipple showed invasive ductal carcinoma, MS BR grade 2. Estrogen receptor positive 100%, progesterone receptor- 0%, HER2 negative 0, proliferation index high 25% by Ki 67 immunostain. She is not a good candidate for neoadjuvant chemotherapy. I discussed above findings with patient. She is a reasonable candidate for neoadjuvant hormonal therapy if she is not a surgical candidate Upfront. Once her EF normalized in 2022 she transferred care to [facility] oncology, she had right mastectomy with axillary lymph node biopsy and was found to have 3 positive lymph nodes for malignancy. She finished radiation 2023. She still taking the Arimidex, she wasa started also on Verzenio Stage 3a chronic kidney disease 09/12/2020 HFrEF (heart failure with reduced ejection fract ion) 07/12/2016 Overview (08/29/2023): Lowest EF 15% 10/2021 LBBB. Cath non obstructive CAD on 2020 Non ischemic Responded well to carvedilol/Entresto ECHO from [facility] showed normalization of her EF 12/2022 Herpes simplex infection of skin 01/01/2016 Hypercholesterolemia 11/02/2015 Depressive disorder 11/02/2015 Former smoker 11/02/2015 Overview (12/10/2023): She quit 2019 still smokes LEE (obstructive sleep apnea) 01/26/2015 Acquired hypothyroidism 11/19/2005 Essential hypertension, benign 11/19/2005 Overview (07/25/2022): 10/06- cough with shin 03/04 mri small vessel dz,carotid negative 03/04 [facility] BP has resolved Resolved Problems Problem Noted Date Diagnosed Date Resolved Date Pancytopenia 04/30/2024 12/07/2024 Overview (12/07/2024): Resolved. This occurred STERLING (acute kidney injury) 04/30/2024 Trigger middle finger of right hand 04/30/2024 07/01/2024 Trigger middle finger of left hand 04/30/2024 07/01/2024 Breast cancer 06/24/2023 06/24/2023 12/10/2023 Heart failure with reduced ejection fraction 06/24/2023 12/10/2023 Cardiomyopathy due to hypertension 07/25/2022 03/07/2023 Insomnia 10/04/2009 12/10/2023 Overview (07/25/2022): Was put on trazodone in hosptial 09/06 Encounters Date Type Department Care Team Description 12/07/2024 10:00 AM EDT Office Visit [facility] [address] [place] [phone] Wilder Lehman MD HFrEF (heart failure with reduced ejection fraction) ([facility]) (Primary Dx); Depressive disorder; Acquired hypothyroidism 12/07/2024 Travel 12/06/2024 Telephone [facility] [address] [place] [address] Rodolfo Sharp [place] CHART PREP 11/30/2024 Patient Outreach [facility] [address] [place], [place] [phone] Wilder Lehman MD Pre-visit Planning (SDOH unable to reach LVM) 11/20/2024 Refill [facility] [address] [place], [place] [phone] Wilder Lehman MD Systolic congestive heart failure, unspecified HF chronicity ([facility]/HCC) 10/28/2024 Telephone [facility] [address] [place] [address] Wilder Lehman MD Dental Medical clearance for dental from Last 3 Months Immunizations Name Administration Dates Next Due Influenza High-dose Quadriva lent Preservative Free 05/07/2023,05/02/2022,04/26/2021,05/07 Influenza injectable quadriv alent IIV4 with preservative 06/13/2017,04/12/2016 Influenza injectable quadriv alent preservative free 06/02/2019,09/05/2009 Influenza, High Dose Seasona l, Preservative Free 04/08/2024,04/22/2018 Influenza, IIV3, injectable 05/06/2013, 2,04/27/2009 Moderna Covid-19 Vaccine 12+ 12/26/2021, 07/25/2021,10/12/2020,09/14 Moderna Covid-19 Vaccine 6+ Bivalent 07/31/2022 Novel [id number], preservative-free 09/05/2009 Pfizer Covid-19 Vaccine 12+ 05/27/2024 Pneumococcal Conjugate PCV 13 04/06/2018 Pneumococcal Polysaccharide PPSV23 11/02/2015, TD (adult), 2 Lf tetanus tox oid, preservative free, adsorbed 04/06/2018 Tdap 08/14/2006 Zoster, Recombinant 05/07/2023 Social History Tobacco Use Types Packs/Day Years Used Date Smoking Tobacco: Former Cigarettes Q uit: 2020 Passive Smoke Exposure: Past Smokeless Tobacco: Never Tobacco Cessation:Counseling Given: Not Answered Alcohol Use Standard Drinks/Week Comments Never 0 (1 standard drink = 0.6 oz pur e alcohol) Alcohol Answer Date Recorded Frequency of Alcohol Consumption Not on file 03/11/2024 Average Number of Drinks Not on file 024 Frequency of Binge Drinking Not on file 02/25 Score 0 03/11/2024 Depression Answer Date Recorded Patient Health Questionnaire-9 Score 1 09/07/2024 Patient Health Questionnaire-9 Score 1 09/07/2024 Last PHQ-9: Questionnaire Data Not on file 0 09/07/2024 Housing Stability Answer Date Recorded What is your housing situation today? I have kirk hernandez 09/07/[address] you li ve. Do you have problems with any of the following? None of the above 09/07/2024 Food Insecurity Answer Date Recorded Within the past 12 months, y ou worried that your food would run out before you got money to buy more: Never True 09/07/2024 Within the past 12 months,th e food you bought just didn't last and you didn't have enough money to get more: Never True 05/2025 Transportation Answer Date Recorded In the past 12 months, has l ack of transportation kept you from medical appts, meetings, work or from getting things needed for daily living? No 09/07/2024 Utilities Answer Date Recorded In the past 12 months, has t he electric, gas, oil or water company threatened to shut off services in your home? No 09/07/2024 Depression Answer Date Recorded Patient Health Questionnaire-2 Score 1 09/07/2024 Internet Access Answer Date Recorded Internet Access Q1 Yes 09/07/2024 Internet Access Q2 Not on file 09/07/2024 Comments Unknown Sex and Gender Information Value Date Recorded Sex Assigned at Female 05/27/2022 10:26 AM EDT Legal Sex Female 10:26 AM EDT Gender Identity Female 05/27/2022 10:26 AM EDT Sexual Orientation Straight 05/27/2022 10 :26 AM EDT Last Filed Vital Signs Vital Sign Reading Time Taken Comments Blood Pressure 121/68 12/07/2024 10:00 AM EDT Pulse 94 12/07/2024 10:00 AM EDT Temperature 37.2 ??C (98.9 ??F) 12/07/2024 1 0:00 AM EDT Respiratory Rate 22 12/07/2024 10:0 0 AM EDT Oxygen Saturation 98% 12/07/2024 10: 00 AM EDT Inhaled Oxygen Concentration - - Weight 73.8 kg (162 lb 12.8 oz) 025 10:00 AM EDT Height 157.5 cm (5' 2 ) 12/07/2024 10:0 0 AM EDT Body Mass Index 29.78 12/07/2024 10:00 AM EDT Plan of Treatment Health Maintenance Due Date Last Done Comments CT Colonography 1949 Colonoscopy 1949 Colorectal Cancer Screening 1949 FIT DNA/Cologuard 1949 FIT 1949 FOBT 1949 Sigmoidoscopy 1949 Zoster Vaccines (2 of 2) 07/02/2023 05/07/2023 RSV Patients and Patients Aged 60 years or older (1 - 1-dose 75+ series) 2024 Depression Screening 09/07/2025 09/07/2024, 09/07/19 25 SDOH Screening 09/07/2025 09/07/2024 Alcohol/Substance Use Screening 12/07/2025 12/07/2024 Tobacco Screening 12/07/2025 12/07/2024 DTaP/Tdap/Td Vaccines (3 - Td or Tdap) 04/06/2028 04/06/2018, 08/14/2006 Lipid Panel 01/18/2029 01/19/2024, 10/2022, 08/08/2021, Additional history exists Pneumococcal Vaccine: 50+ Years Completed 04/06/2018, 11/02/2015, 09/09/2009 Hepatitis C Screening Completed 01/19/2024 Influenza Vaccine Completed 04/08/2024, , 05/02/2022, Additional history exists COVID-19 Vaccine Completed 05/27/2024, 05/2023, 07/31/2022, Additional history exists HIB Vaccines Aged Out No longer eligi ble based on patient's age to complete this topic HPV Vaccines Aged Out No longer eligi ble based on patient's age to complete this topic Hepatitis A Vaccines Aged Out No long er eligible based on patient's age to complete this topic Hepatitis B Vaccines Aged Out No long er eligible based on patient's age to complete this topic IPV Vaccines Aged Out No longer eligi ble based on patient's age to complete this topic Meningococcal Vaccine Aged Out No megan maria luz eligible based on patient's age to complete this topic RSV under 20 months Aged Out No longe r eligible based on patient's age to complete this topic Rotavirus Vaccines Aged Out No longer eligible based on patient's age to complete this topic Procedures Procedure Name Priority Date/Time Associated Diagnosis Comments HEPATITIS C AB W/REFL TO HCV RNA, QN, PCR Routine 01/19/2024 10:30 AM EDT Need for hepatitis C screening test LIPID PANEL, STANDARD Routine 01/19/2024 10:30 AM EDT Hypothyroidism, unspecified type Infiltrating ductal carcinoma of right breast (CMS/HCC) Chronic systolic congestive heart failure (CMS/HCC) from Last 3 Months or Most Recently Relevant to Health Maintenance Results * Hepatitis C Antibody with Reflex to HCV, RNA, Quantitative, Real-Time PCR (01/19/2024 10:30 AM EDT) Hepatitis C Antibody Nonreactive Nonreactive [facility] Comment:Antibodies to HCV no t detected; does not exclude early acuteHCV infection. Blood Venous blood specimen / Unknown 01/19/2024 10:30 AM EDT 01/19/2024 12:17 PM EDT us Wilder Lehman MD LAB BLOOD ORDERABLES Final Resul t Performing Organization Address [facility] Co de Phone Number [facility] [address] [place] [phone] * (ABNORMAL) Lipid Panel, Standard (01/19/2024 10:30 AM EDT) Triglycerides 177(H) <150 mg/dL [facility] Comment:Desirable Triglyceri de: less than 150 mg/dLBorderline High Triglyceride 150-199 mg/dLHigh Triglyceride: 200-499 mg/dLVery High Triglyceride: greater than or equal to 5OO mg/dL Cholesterol 253(H) <200 mg/dL [facility] Comment:Desirable Cholestero l: less than 200 mg/dLBorderline High Cholesterol: 200-239 mg/dLHigh Cholesterol: greater than 239 mg/dL LDL Cholesterol Calculated 160(H) <100 mg/dL [facility] Comment:Desirable LDL: less than 100 mg/dLNear Optimal/Above Optimal LDL: 110- 129 mg/dLBorderline High LDL: 130-159 mg/dLHigh LDL: 160-189 mg/dLVery High LDL: greater than or equal to 190 mg/dL HDL Cholesterol 58 >40 mg/dL [facility] Comment:Desirable HDL: great er than 40 mg/dL Note: This HDL assay may give artificially low results in patients with liver disease. Blood Venous blood specimen / Unknown 01/19/2024 10:30 AM EDT 01/19/2024 12:17 PM EDT us Wilder Lehman MD LAB BLOOD ORDERABLES Final Resul t Performing Organization Address [facility] Co de Phone Number [facility] [address] [place] [phone] from Last 3 Months or Most Recently Relevant to Health Maintenance Insurance [facility] STANDARD [facility] [employer] (HMO D-SNP) Care Teams Public Health Registrar Relationship Specialty Start Date End Date Name, MD Wilder [address] [place] [phone] PCP - General Family Medicine 11/02/15
--- OUTSIDE RECORDS SUMMARY | 2024-12-07 11:57 | XMS_ITS | Encounter Summary ---
Author Organization [employer] Address [address] [facility] 7[address] [place] [address] Care Team Providers Care Canal Driver Name Role Phone Name, Wilder DE LA TORRE Primary Care Provider [phone] Encounter Details Date Type Department Care Team (Latest Contact Info) Description 12/07/2024 Travel Social History Tobacco Use Types Packs/Day Years Used Date Smoking Tobacco: Former Cigarettes Q uit: 2020 Passive Smoke Exposure: Past Smokeless Tobacco: Never Alcohol Use Standard Drinks/Week [...] Assessment Noted Time PHQ-9 Depression Total Score: 1 09/07/19 25 10:32 AM EST documented as of this encounter Care Teams Canal Driver Relationship Specialty Start Date End Date Name, MD Wilder [address] [place] [address] PCP - General Family Medicine 11/02/15 documented as of this encounter
--- OUTSIDE RECORDS SUMMARY | 2024-12-07 11:57 | XMS_ITS | Clinical Summary ---
Author Organization [facility] Address [address] [place] [address] Care Team Providers Care Manager Test Name Role Phone Name, Wilder DE LA TORRE Primary Care Provider [phone] Allergies No known active allergies Medications Aspirin Low Dose 81 MG EC tablet Take 1 tablet by mouth daily 1 Active chlorthalidone (HYGROTON) 25 MG tablet TAKE ONE TABLET BY MOUTH EVERY DAY 1 Active doxepin (SINEquan) 10 MG capsule TAKE ONE CAPSULE BY MOUTH AT BEDTIME 1 Active levothyroxine (SYNTHROID, LEVOTHROID) 200 MCG tablet Take 1 tablet by mouth daily 1 Active lovastatin (MEVACOR) 40 MG tablet Take 1 tablet by mouth 1 (one) time each day 1 Active Omeprazole 20 MG tablet delayed-release TAKE ONE TABLET BY MOUTH EVERY DAY 0 Active sertraline (ZOLOFT) 50 MG tablet TAKE ONE TABLET BY MOUTH EVERY DAY 1 Active loratadine-pseu doephedrine (CLARITIN-D 12-hour) 5-120 MG per 12 hr tablet Take 1 tablet by mouth 2 (two) times a day Do not crush, chew, or split. Active fluticasone (FLONASE) 50 MCG/ACT nasal spray Administer 2 sprays into each nostril 1 (one) time each day Active lidocaine-prilo leydi (EMLA) cream Apply 2-3 application topically if needed for mild pain Active acyclovir (ZOVIRAX) 400 MG tablet Take 400 mg by mouth every 8 (eight) hours Active omeprazole (PriLOSEC) [address] capsule 1 Active amLODIPine (NORVASC) 5 MG tabletIndicatio ns:Essential (primary) hypertension,St age 3a chronic kidney disease (HCC) Take 1 tablet (5 mg total) by mouth 1 (one) time each day 60 tablet 5 Active lisinopril (PRINIVIL,ZESTR IL) 30 MG tabletIndicatio ns:Essential (primary) hypertension,St age 3a chronic kidney disease (HCC) Take 1 tablet (30 mg total) by mouth daily 90 tablet 3 Active Active Problems Problem Noted Date Diagnosed Date Stage 3a chronic kidney disease 09/12/2020 Systolic congestive heart failure 09/12/2020 Essential (primary) hypertension 09/12/2020 Hypercholesterolemia 09/12/2020 Hypothyroidism 09/12/2020 Resolved Problems Problem Noted Date Diagnosed Date Resolved Date Chronic kidney disease 09/12/202009/12 Social History Tobacco Use Types Packs/Day Years Used Date Smoking Tobacco: Never Assessed Comments Unknown Sex and Gender Information Value Date Recorded Sex Assigned at Not on file Legal Sex Female 4:59 PM EST Gender Identity Not on file Sexual Orientation Not on file Last Filed Vital Signs Vital Sign Reading Time Taken Comments Blood Pressure 140/76 10/10/2020 1:33 PM EDT Pulse 94 10/10/2020 1:33 PM EDT Temperature - - Respiratory Rate - - Oxygen Saturation 95% 10/10/2020 1:33 PM EDT Inhaled Oxygen Concentration - - Weight 73.5 kg (162 lb) 10/10/2020 1:33 PM EDT Height 154.9 cm (5' 1 ) 10/10/2020 1:33 PM EDT Body Mass Index 30.61 10/10/2020 1:33 PM EDT Plan of Treatment Health Maintenance Due Date Last Done Comments Breast Cancer Screening 1950 Pneumococcal Vaccine: 50+ Ye ars (1 of 2 - PCV) 1968 Colorectal Cancer Screening: Annual FOBT 1998 Colorectal Cancer Screening: Colonoscopy 1998 Colorectal Cancer Screening: Sigmoidoscopy 1998 Influenza Vaccine (Season Ended) 2025 Hepatitis B Vaccine Aged Out No longe r eligible based on patient's age to complete this topic Insurance ([id number]) [facility] ([id number]) Care Teams Manager Test Relationship Specialty Start Date End Date Name, MD Wilder [address] [place] [phone] PCP - General 08/07/20
--- OUTSIDE RECORDS SUMMARY | 2024-12-07 11:57 | XMS_ITS | Encounter Summary ---
Author Organization [employer] Address [address] [place] [address] [address] [place] [address] Care Team Providers Care Police Cadet Name Role Phone Name, Wilder DE LA TORRE Primary Care Provider [phone] Reason for Visit * Reason Comments Med Refill Encounter Details Date Type Department Care Team (Late st Contact Info) Description 01/23/2023 Refill [facility] [address] [place], [place] [phone] Name, MD Wilder [address] [place] [address] Hypothyroidism, unspecified type Social History Tobacco Use [...] type documented in this encounter Care Teams Police Cadet Relationship Specialty Start Date End Date Name, MD Wilder [address] [place] [phone] PCP - General Family Medicine 4/7/16 documented as of this encounter
--- OUTSIDE RECORDS SUMMARY | 2024-12-07 11:57 | XMS_ITS | Clinical Summary ---
Author Organization [facility] Address [address] [place] [address] Care Team Providers Care Multiskill Operator Name Role Phone Unavailable Primary Care Provider Unavailabl e Source Comments PLEASE NOTE, if this patient is a minor, it may be UNLAWFUL to discuss sensitive information that is contained in these records (such as FAMILY PLANNING, MENTAL HEALTH or SUBSTANCE ABUSE) with the minor patient's parent or other person without the patient's specific authorization.[facility] Allergies No known active allergies Medications No known medications Active Problems No known active problems Social History Tobacco Use Types Packs/Day Years Used Date Smoking Tobacco: Never Assessed Social Connections Answer Date Recorded Connectedness 0 04/08/2024 Financial Resource Strain Answer Date R ecorded Financial Resource Strain 0 2021 Stress Answer Date Recorded Stress 0 12/25/2021 Physical Activity Answer Date Recorded Physical Activity 0 12/25/2021 Food Insecurity Answer Date Recorded Food 0 04/22/2024 Transportation Needs Answer Date Record ed Transportation 0 12/25/2021 Housing Stability Answer Date Recorded Housing 0 12/25/2021 Safety and Environment Answer Date Ramsey rded Safety 0 12/25/2021 Utilities Answer Date Recorded Utilities 0 12/25/2021 Employment Answer Date Recorded Stress 0 04/08/2024 Comments Unknown Sex and Gender Information Value Date Recorded Sex Assigned at Not on file Legal Sex Female 7:38 AM PST Gender Identity Not on file Sexual Orientation Not on file Last Filed Vital Signs Vital Sign Reading Time Taken Comments Blood Pressure 118/73 01/01/2022 10:37 AM EDT Pulse 90 01/01/2022 10:37 AM EDT Temperature - - Respiratory Rate - - Oxygen Saturation - - Inhaled Oxygen Concentration - - Weight - - Height - - Body Mass Index - - Plan of Treatment Health Maintenance Due Date Last Done Comments Dental Perio Charting 1950 Hepatitis C Screening 1949 Lipid Screening 1949 Tobacco Screening 1949 Medicare Annual Wellness Visit 1967 Imm-DTaP/Tdap/Td (1 - Tdap) 1968 CT Colonography 1994 Colonoscopy 1994 Colorectal Cancer Screening 1994 FIT/gFOBT 1994 Fecal DNA 1994 Flexible Sigmoidoscopy 1994 Imm-Pneumococcal 65+ (1 of 1 - PCV) 1999 Imm-Zoster, Recombinant (1 of 2) 1999 Bone Density Screening 2014 Falls Prevention 2014 Hypertension Screening (#1) 01/01/2023 [id number] ( season) 2024 Imm-Influenza (#1) 2024 Alcohol and Drug Screen 07/28/2024 Depression Annual Screen 07/28/2024 Insurance [facility] Member Subscriber Plan / Payer (Ef fective 2021-Present) Name:Keshia Sullivan Relation to Subscriber:Self Name:Keshia Sullivan Payer ID:[id number] Group ID:Not on file Type:Indemnity Address: [place] [address] [place] [address]
--- OUTSIDE RECORDS SUMMARY | 2024-12-07 11:57 | XMS_ITS | Encounter Summary ---
Author Organization [employer] Address [address] [place] [address] [address] [place] [address] Care Team Providers Care Project Development Coordinator Name Role Phone Name, Wilder DE LA TORRE Primary Care Provider [phone] Encounter Details Date Type Department Care Team ([facility] st Contact Info) Description 02/11/2023 Telephone [facility] [address] [place], [place] [phone] Name, MD Wilder [address] [place] [address] Social History Tobacco Use Types Packs/Day Years [...] on filedocumented in this encounter Care Teams Project Development Coordinator Relationship Specialty Start Date End Date NameWilder MD [address] [place] [phone] PCP - General Family Medicine 11/02/15 documented as of this encounter
--- OUTSIDE RECORDS SUMMARY | 2024-12-07 11:57 | XMS_ITS | Encounter Summary ---
Author Organization [employer] Address [address] [facility] 7t [place] [address] Care Team Providers Care Emergency Management Consultant Name Role Phone Name, Wilder DE LA TORRE Primary Care Provider [phone] Reason for Visit * Reason Onset Date Comments Call Back Request 08/08/2023 Encounter Details Date Type Department Care Team ([facility] st Contact Info) Description 08/08/2023 Telephone [facility] [address] [place], [place] [phone] Name, MD Wilder [address] [place] [address] Call Back Request Social History Tobacco Use Types Packs/Day Years [...] encounter Miscellaneous Notes * Telephone Encounter - Franky Lindquist RN - 08/08/2023 10:34 AM EST T?C to pt. Through [employer] id - [id number] for further details for below message, No answer. LVM to call back on [phone]. * Telephone Encounter - Socorro Jaimes - 08/08/2023 9:08 AM EST Tc from pt requesting a call back from a nurse pt stated insurance is not going to cover anymore her blood pressure medication and is looking for alternative. Arabic Speaker. documented in this encounter Plan of Treatment Not on file documented as of this encounter Visit Diagnoses Not on filedocumented in this encounter Care Teams Emergency Management Consultant Relationship Specialty Start Date End Date Name, MD Wilder [address] [place] [address] PCP - General Family Medicine 11/02/15 documented as of this encounter
--- OUTSIDE RECORDS SUMMARY | 2024-12-07 11:57 | XMS_ITS | Encounter Summary ---
Author Organization [facility] Address [address] [place] [address] Phone Care Team Providers Care Customs Compliance Director Name Role Phone Name, Wilder DE LA TORRE Primary Care Provider [phone] Encounter Details Date Type Department Care Team (Late st Contact Info) Description 11/13/2020 Documentation Only [facility] [address] [place] [phone] Alia Torres [place] [address] [place] [phone] Social History Tobacco Use Types Packs/Day Years Used Date Smoking Tobacco: Never Assessed Comments Unknown Sex and Gender Information Value Date Recorded Sex Assigned at Not on file Legal Sex Female 4:59 PM EST Gender Identity Not on file Sexual Orientation Not on file COVID-19 Exposure Response Date Recorded In the last month, have you been in contact with someone who was confirmed or suspected to have Coronavirus / COVID-19? No / Unsure 10/31/2020 10:35 AM EDT documented as of this encounter Plan of Treatment Not on file documented as of this encounter Visit Diagnoses Not on filedocumented in this encounter Care Teams Customs Compliance Director Relationship Specialty Start Date End Date Name, MD Wilder [address] [place] [address] PCP - General 08/07/20 documented as of this encounter
--- OUTSIDE RECORDS SUMMARY | 2024-12-07 11:57 | XMS_ITS | Encounter Summary ---
Author Organization [employer] Address [address] [place] [address] 7t [place] [address] Care Team Providers Care Photo Manager Name Role Phone Name, Wilder DE LA TORRE Primary Care Provider [phone] Encounter Details Date Type Department Care Team ([facility] st Contact Info) Description 12/13/2022 Abstract [facility] [address] [place], [place] [phone] Name, MD Wilder [address] [place] [address] Social History Tobacco Use Types Packs/Day Years [...] Orientation Straight 05/27/2022 10 :26 AM EDT COVID-19 Exposure Response Date Recorded In the last 10 days, have yo u been in contact with someone who was confirmed or suspected to have Coronavirus/COVID-19? No / Unsure 11/19/2022 8:53 AM EDT documented as of this encounter Plan of Treatment Not on file documented as of this encounter Visit Diagnoses Not on filedocumented in this encounter Care Teams Photo Manager Relationship Specialty Start Date End Date Name, MD Wilder [address] [place] [address] PCP - General Family Medicine 11/02/15 documented as of this encounter
--- OUTSIDE RECORDS SUMMARY | 2024-12-07 11:57 | XMS_ITS | Encounter Summary ---
Author Organization [employer] Address [address] [facility] 7 [place] [address] Care Team Providers Care Time Buyer Name Role Phone Name, Wilder DE LA TORRE Primary Care Provider [phone] Reason for Visit * Reason Comments Follow-up Encounter Details Date Type Department Care Team (Latest Contact Info) Description 12/07/2024 10:00 AM EDT Office Visit [facility] MEDICINE [address] [place] [phone] Name, MD Wilder [address] [place] [address] HFrEF (heart failure with reduced ejection fraction) (CMS/HCC) (Primary Dx); Depressive disorder; Acquired hypothyroidism Social History Tobacco Use Types Packs/Day Years [...] AM EDT documented as of this encounter Last Filed Vital Signs Vital Sign Reading [...] Mass Index 29.78 12/07/2024 10:00 AM EDT documented in this encounter Progress Notes * Wilder Name, - 12/07/2024 10:00 AM EDT Subjective Patient ID: Keshia Prado is a 74 y.o. female who presents for Follow-up. Patient comes for a follow-up visit. She is accompanied by her . She has been using her carvedilol and Entresto daily. She denies any chest pains, no shortness of breath, no orthopnea or edema. She has appt with cardi in December. She complains of anhedonia. She admits to symptoms of depression. She is not suicidal. She used to be prescribed sertraline but she stopped the medication months ago. She also has a personal history of hypothyroidism. She assures me she is using her levothyroxine asprescribed. I increased her dose of thyroid supplementation in June because of an elevated TSH.She is due to repeat TSH. Review of Systems Constitutional: Negative for chills and fever. HENT: Negative for sore throat. Respiratory: Negative for cough, shortness of breath and wheezing. Cardiovascular: Negative for chest pain, palpitations and leg swelling. Gastrointestinal: Negative for abdominal pain. Psychiatric/Behavioral: Negative for self-injury and suicidal ideas. See HPI Visit Vitals BP 121/68 (BP Location: Left arm, Patient Position: Sitting, BP Cuff Size: Large adult) Pulse 94 Temp 98.9 ??F (37.2 ??C) (Oral) Resp 22 Ht 5' 2 (1.575 m) Wt 162 lb 12.8 oz (73.8 kg) SpO2 98% BMI 29.78 kg/m?? Smoking Status Former BSA 1.8 m?? Objective Physical Exam Constitutional: Appearance: Normal appearance. Cardiovascular: Rate and Rhythm: Normal rate and regular rhythm. Heart sounds: No murmur heard. No gallop. Pulmonary: Effort: Pulmonary effort is normal. No respiratory distress. Breath sounds: Normal breath sounds. No wheezing. Musculoskeletal: Right lower leg: No edema. Left lower leg: No edema. Neurological: Mental Status: She is alert. Lab Results Component Value Date TSH 35.50 (H) 07/01/2024 Assessment/Plan Diagnoses and all orders for this visit: HFrEF (heart failure with reduced ejection fraction) (CMS/[facility]) Comments: Lowest EF 15% 10/2021 LBBB. Cath non obstructive CAD on 2020 Non ischemic Responded well to carvedilol/Entresto ECHO from [facility] showed normalization of her EF 12/2022 Continue current med and recheck BMP She has appt with cardi next month to check on her ICD Orders: - carvedilol (Coreg) 6.25 MG tablet; Take 1 tablet (6.25 mg) by mouth with breakfast and with evening meal. - sacubitril-valsartan (Entresto) 97-103 MG tablet; Take 1 tablet by mouth 2 times daily. - Basic Metabolic Panel; Future Depressive disorder Comments: I will restart her sertraline since she is having symptoms of depression, follow up in 3 months Orders: - sertraline (Zoloft) 50 MG tablet; Take 1 tablet (50 mg) by mouth Once daily. Acquired hypothyroidism Comments: Recommended to use her levothyroxine as prescribed and she will have repeat TSH today. I increased dose from 112 mcg to 125 mcg daily in June. She is reminded to use the medication in the morningwith an empty stomach with a glass of water half an hour to an hour prior to breakfast. documented in this encounter Plan of Treatment Scheduled Orders Name Type Priority Associated Diagnoses Orde r Schedule Basic Metabolic Panel Lab Routine HFrEF (heart failure with reduced ejection fraction) (CMS/HCC) Expected: 12/07/2024 (Approximate), Expires: 12/07/2025 documented as of this encounter Visit Diagnoses Diagnosis HFrEF (heart failure with reduced ejection fraction) (CMS/HCC)- Primary Depressive disorder Depressive disorder, not elsewhere classified Acquired hypothyroidism Unspecified hypothyroidism documented in this encounter Additional Health Concerns Assessment Noted Time PHQ-9 Depression Total Score: 1 09/07/19 25 10:32 AM EST documented as of this encounter Care Teams Time Buyer Relationship Specialty Start Date End Date Name, MD Wilder [address] [place] [address] PCP - General Family Medicine 11/02/15 documented as of this encounter
--- OUTSIDE RECORDS SUMMARY | 2024-12-07 11:57 | XMS_ITS | Encounter Summary ---
Author Organization [facility] Address [address] [place] [address] Phone Care Team Providers Care Aquarium Specialist Name Role Phone Name, Wilder DE LA TORRE Primary Care Provider [phone] Encounter Details Date Type Department Care Team (Late st Contact Info) Description 11/02/2021 Documentation Only [facility] [address] [place] [phone] Myra Alba MD Social History Tobacco Use Types Packs/Day Years Used Date Smoking Tobacco: Never Assessed Comments Unknown Sex and Gender Information Value Date Recorded Sex Assigned at Not on file Legal Sex Female 4:59 PM EST Gender Identity Not on file Sexual Orientation Not on file documented as of this encounter Plan of Treatment Not on file documented as of this encounter Visit Diagnoses Not on filedocumented in this encounter Care Teams Aquarium Specialist Relationship Specialty Start Date End Date Name, MD Wilder [address] [place] [address] PCP - General 08/07/20 documented as of this encounter
--- OUTSIDE RECORDS SUMMARY | 2024-12-07 11:57 | XMS_ITS | Encounter Summary ---
Author Organization [employer] Address [address] [facility] 7t [place] [address] Care Team Providers Care Special Procedures Nurse Name Role Phone Name, Wilder DE LA TORRE Primary Care Provider [phone] Reason for Visit * Reason Onset Date Comments CHART PREP 12/06/2024 Encounter Details Date Type Department Care Team ([facility] st Contact Info) Description 12/06/2024 Telephone [facility] [address] [place] [address] [facility] CH[facility] PREP Social History Tobacco Use Types Packs/Day Years [...] encounter Miscellaneous Notes * Telephone Encounter - Rodolfo Shapr MA - 12/06/2024 1:42 PM EDT Chart Prep Labs: done from 09/07/24 Images: not applicable Referrals: not applicable Vaccines due: RSV and Zoster Screenings: colonoscopy Overdue care gaps: SBIRT, Oral health screening, Disability screen, and Tobacco documented in this encounter Plan of Treatment Not on file documented as of this encounter Visit Diagnoses Not on filedocumented in this encounter Additional Health Concerns Assessment Noted Time PHQ-9 Depression Total Score: 1 09/07/19 25 10:32 AM EST documented as of this encounter Care Teams Special Procedures Nurse Relationship Specialty Start Date End Date Name, MD Wilder [address] [place] [address] PCP - General Family Medicine 11/02/15 documented as of this encounter
--- OUTSIDE RECORDS SUMMARY | 2024-12-07 11:58 | XMS_ITS | Encounter Summary ---
Author Organization [employer] Address [address] [facility] 7 [place] [address] Care Team Providers Care Tensioning Machine Operator Name Role Phone Name, Wilder DE LA TORRE Primary Care Provider [phone] Reason for Visit * Reason Onset Date Comments Referral 01/15/2024 Encounter Details Date Type Department Care Team ([facility] st Contact Info) Description 01/15/2024 Telephone [facility] [address] [place], [place] [phone] Name, MD Wilder [address] [place] [address] Referral Social History Tobacco Use Types Packs/Day Years [...] Telephone Encounter - Franky Lindquist RN - 01/16/2024 1:05 PM EDT T/C to Alia for below message, Alia states due to stroke , when pt. Walk little bit longer, her left feet drop more. So looking for referral for Community Relations Director. Please review and advise if apt. Needs to schedule. * Telephone Encounter - Dada Anguiano - 01/16/2024 11:53 AM EDT Tc from alia with [facility] returning call. * Telephone Encounter - Franky Lindquist RN - 01/16/2024 10:03 AM EDT T.C to [phone] for further information, no answer. LVM to call back on [phone]. * Telephone Encounter - Lani Haskins - 01/15/2024 3:13 PM EDT Tc from Alia (physical therapist) with [facility] requesting a referral to night cleaner for left leg. Any questions, contact Alia at [phone] documented in this encounter Plan of Treatment Not on file documented as of this encounter Visit Diagnoses Not on filedocumented in this encounter Additional Health Concerns Assessment Noted Time PHQ-9 Depression Total Score: 0 08/29/19 24 11:32 AM EST documented as of this encounter Care Teams Tensioning Machine Operator Relationship Specialty Start Date End Date Name, MD Wilder [address] [place] [address] PCP - General Family Medicine 11/02/15 documented as of this encounter
[2024-12-07 12:37] LABS: Anion Gap 14 (12-20); Blood Urea Nitrogen 18 mg/dL (9-16); Calcium 8.9 mg/dL (8.4-10.2); Carbon Dioxide 26 mmol/L (22-29); Chloride 104 mmol/L (96-108); Estimated Glomerular Filt Rate 57; Glucose Random 170 mg/dL (60-115); Potassium 3.9 mmol/L (3.3-5.1); Sodium 140 mmol/L (135-145)
[2024-12-07 12:49] LABS: TSH reflex Free T4 3.84 uIU/mL (0.32-4.0)
[2024-12-07 14:54] LABS: Basophils Absolute Auto 0.1 X10*3/uL (0.0-0.2); Basophils Percent Auto 0.7 % (0-2); Eosinophils Absolute Auto 0.2 X10*3/uL (0.0-0.4); Eosinophils Percent Auto 3.2 % (0-4); Hematocrit 37.1 % (37.0-47.0); Hemoglobin 12.8 g/dl (12.0-16.0); Imm Gran Abs Auto 0.03 X10*3/uL (0.00-0.03); Imm Gran Pct Auto 0.4 % (0.0-0.4); Lymphocytes Absolute Auto 1.2 X10*3/uL (1.2-4.9); Lymphocytes Percent Auto 17.6 % (20-40); Mean Corpuscular HGB Conc 34.5 g/dl (31.0-35.0); Mean Corpuscular Hemoglobin 32.1 pg (27.0-33.0); Monocytes Absolute Auto 0.7 X10*3/uL (0.1-1.2); Monocytes Percent Auto 9.6 % (2-11); Neutrophils Absolute Auto 4.8 x10*3/uL (2.0-8.3); Neutrophils Percent Auto 68.5 % (45-73); Platelet Count 118 X10*3/uL (160-400); Red Blood Count 3.99 X10*6/uL (4.20-5.50); Red Cell Distribution Width 12.5 % (11.0-16.0)
== END 2024-12-07 10:43 | disposition home or self-care (01) ==
LOC: HO.HHCL 10:42
PROVIDERS: Visit Provider Internal Medicine Geriatric Medicine
DX: I50.20 Unspecified systolic (congestive) heart failure (principal); E03.9 Hypothyroidism, unspecified; D61.818 Other pancytopenia
CPT/HCPCS: 36415; 80048; 84443; 85025

== ENCOUNTER 2025-06-21 10:23 | Outpatient (REF) | payer OTHER, SELFPAY ==
--- NOTE | ~2025-06-21 | XR_ITS ---
EXAMINATION: XR SHOULDER, LEFT CLINICAL INFORMATION: Chronic left shoulder pain, personaly history of breast cancer COMPARISON: None available. TECHNIQUE: AP external rotation, Grashey, scapular Y, and axillary views of the left shoulder. FINDINGS: Defibrillating pacemaker projects over the left chest wall. 3 wires traverse to the right margin of the film. AC joint is intact and not degenerated. Glenohumeral joint demonstrates subtle minute marginal osteophytes. There is no dislocation. No fracture is identified. XR/XR shoulder LT min 2V IMPRESSION: Very subtle degenerative changes are evident in the left glenohumeral joint. Electronically signed by: Jadiel Baker MD 06/21/2025 12:20 PM AYDIN
[2025-06-21 11:49] LABS: MANUAL DIFF FLAG NO
[2025-06-21 11:56] LABS: Hematocrit 39.2 % (37.0-47.0); Hemoglobin 13.2 g/dl (12.0-16.0); Imm Gran Abs Auto 0.02 X10*3/uL (0.00-0.03); Imm Gran Pct Auto 0.3 % (0.0-0.4); Lymphocytes Absolute Auto 1.3 X10*3/uL (1.2-4.9); Mean Corpuscular HGB Conc 33.7 g/dl (31.0-35.0); Mean Corpuscular Hemoglobin 31.1 pg (27.0-33.0); Mean Corpuscular Volume 92.2 fL (80.0-98.0); NRBC Abs Auto 0.000 X10*3/uL (0.0-0.012); NRBC Pct Auto 0.0 /100WBC (0.0-0.2); Platelet Count 130 X10*3/uL (160-400); Red Blood Count 4.25 X10*6/uL (4.20-5.50); White Blood Count 6.3 X10*3/uL (4.8-10.8)
--- OUTSIDE RECORDS SUMMARY | 2025-06-21 12:56 | XMS_ITS | Data Portability ---
Author Organization [facility] Address [address] [place] [address] Care Team Providers Care Document Controller Name Role Phone HIM [facility] OTHER Assessment Encounter Date Assessment Date Assessment LastModified by Organization Details LastModified Time 04/13/2024 04/13/2024 I provided real -time medical direction via phone for this encounter and was available for additional phone-based assistance as needed. I have reviewed and agree with the Assessment and Plan as documented by the Grain Broker And Market Operator. Patient given the opportunity to ask questions. Our service contacted for an assessment of: diarrhea, light headedness As per above, patient with active chemo, uncontrolled diarrhea times 2 days Per mend worker on the scene, see vitals, distressed and appears dehydrated Impression: hypotension Plan: Sent to the ED. Will call when informed of hospital where patient will be transported to Allergies: Reviewed [place] [id number] Not available 04/13/2024 17:19:36 Plan of Treatment Reminders Order Date Submit Date Provider Last Modified By Organization Details Last Modified Time Details Appointments None record ed. Lab None record ed. Referral None record ed. Procedures None record ed. Surgeries None record ed. Imaging None record ed. Medication Orders None record ed. Patient TargetsNo targets recorded. Patient InstructionsNo instructions recorded. Reason for Referral None Reported. Medical Equipment None Reported. Medications Name Sig Start Date Stop Date Status Note LastModified by Organization Details LastModified Time furosemide 40 mg tablet TAKE 1 TABLET BY MOUTH EVERY DAY active Not Available Not Available No t Available anastrozole 1 mg tablet active Not Available Not Available No t Available levothyroxine 137 mcg tablet TAKE 1 TABLET BY MOUTH BEFORE BREAKFAST active Not Available Not Available No t Available atorvastatin 80 mg tablet active Not Available Not Available Not Available acetaminophen 325 mg tablet TAKE 2 TABLETS BY MOUTH EVERY 4 HOURS NEEDED FOR PAIN active Not Available Not Available No t Available carvedilol 6.25 mg tablet TAKE 1 TABLET BY MOUTH WITH BREAKFAST AND WITH EVENING MEAL active Not Available Not Available No t Available trazodone 50 mg tablet TAKE 1 TABLET BY MOUTH AT BEDTIME active Not Available Not Available No t Available prochlorperaz ine maleate 5 mg tablet TAKE 1 TABLET BY MOUTH THREE TIMES DAILY NEEDED FOR NAUSEA/VOM ITING active Not Available Not Available No t Available ondansetron HCl 4 mg tablet TAKE 1 TABLET BY MOUTH EVERY 8 HOURS NEEDED FOR NAUSEA OR VOMITING active Not Available Not Available No t Available prochlorperaz ine maleate 10 mg tablet TAKE 1 TABLET BY MOUTH FOUR TIMES DAILY FOR 14 DAYS NEEDED FOR NAUSEA OR VOMITING active Not Available Not Available No t Available doxepin 10 mg capsule TAKE 1 CAPSULE BY MOUTH EVERY NIGHT AT BEDTIME active Not Available Not Available No t Available aspirin 81 mg tablet,delaye d release TAKE 1 TABLET BY MOUTH DAILY active Not Available Not Available No t Available levothyroxine 125 mcg tablet TAKE 1 TABLET BY MOUTH EVERY DAY active Not Available Not Available No t Available SSD 1 % topical cream APPLY TOPICALLY TO THE AFFECTED AREA TWICE DAILY active Not Available Not Available No t Available sertraline 50 mg tablet TAKE 1 TABLET BY MOUTH EVERY DAY active Not Available Not Available No t Available oxycodone 5 mg tablet TAKE 1 TABLET BY MOUTH EVERY 4 HOURS NEEDED FOR PAIN active Not Available Not Available No t Available melatonin 5 mg tablet TAKE 2 TABLETS BY MOUTH AT BEDTIME. active Not Available Not Available No t Available Entresto 97 mg-103 mg tablet TAKE 1 TABLET BY MOUTH TWICE DAILY active Not Available Not Available No t Available Verzenio 150 mg tablet active Not Available Not Available No t Available [facility] COVID-19 Ag Self Test kit TEST DIRECTED TODAY active Not Available Not Available No t Available Vitals Date Recorded Heart rate Body temperature Respiratory rate Heart rate Oxygen saturation Systolic And Diastolic Systolic And Diastolic Provider Name and Address Organization Details Last Updated DateTime 4 82 /min 98.7 [degF] 18 /min 105 /min 95 % 93/56 mm[Hg] 83/51 mm[Hg] Not Available [employer] 4 16:50:20 Social History None recorded. Functional Status None recorded. Mental Status None recorded. Family History Nothing Reported. Medical History No medical history recorded. Gynecological HistoryNo gynecological history recorded. Obstetrics History GPAL:G 0 P 0 0 0 0 Past Encounters Encounter ID Performer Location Encounter Start Date Encounter Closed Date Diagnosis/Indication Diagnosis SNOMED-CT Code Diagnosis ICD10 Code Diagnosis IMO Codes Diagnosis Note [id number] Meena Branch MD [address] [address] 04/13/2024 16:50:16 04/13/2024 17:40:36 Low blood pressure 38888279 I95.9 Health Concerns Section Related Observation LastModified by Organization Detai ls LastModified Time None Recorded Concern Status LastModified by Organization Details LastModified Time None Recorded Advance Directives Directive None Recorded Payers Insurance Date Sequence Insurance Name Policy Number Policy Aguilar Covered Member ID Aguilar Member ID Guarantor Name 04/14/2024 1 [facility] - DOS ON OR AFTER 2022 - DUAL ELIGIBLE - [employer] OPTIONS AND ONE CARE (MEDICARE REPLACEMENT/ADV ANTAGE - HMO) Keshia Sullivan [id number] Keshia Sullivan Notes Date Note Type Note Provider Name and Address Organization Details Recorded Time 04/13/2024 text/html [facility] Nurse Triage Notes ([address]): Chief Complaints: Weakness/Lethargy, Hypotension PMH: Cancer, Hypertension, Heart Disease Allergies: No Known Comments: PMH: Pacemaker Daughter calling to request visit for patient with weakness since Friday. Feeling weak. BP was lower than baseline reported by caregiver. BP 89/58 this morning. Patient with worsening diarrhea x2 days. Has been on chemo medication which causes diarrhea. + nausea. Denies vomiting or fever. .................. .................. .................. .................. .................. .................. .................. ............... Grain Broker And Market Operator Note From Christina Cloud: Sent to a call for a pt complaining of weakness and hypotension. SC8 arrives on scene, pt is alert and oriented, airway is patent. Pt found lying supine in bed. Pt's primary language is Vietnamese. Family serves as official court interpreter. Pt is currently going through chemotherapy and complains of chronic nausea and diarrhea as side effects. Pt's family states pt had a dr appt on Friday and received flu shot. Since Friday pt has been complaining of general weakness, then last night pt began complaining of headache, heaviness in head, dizziness, intermittent cp, and hypotension. Pt denies sob, current nausea, vomiting, abd pain, fever, or loc. Pt's family states pt has not been eating and has drank very little in past few days. (supine) BP:93/56, P:82, RR:18, SpO2:95% RA, T:98.7; Pt assisted to sitting position BP:83/51, P:105. Pt complains of heaviness/pain in head and states she feels like she is going to pass out. Pt assisted to supine position. Head: unremarkable; Lung sounds: clear bilaterally; Abdomen: soft, non-tender, no distention; Back: unremarkable; Extremities: unremarkable; Skin: pink, warm, dry; Pt advised she needs to be transported to ED for further eval/treatment. Pt agrees to transport to [facility] as pt receives care through [facility]. [facility] consulted and agrees pt transport to ED is advised. 911 called; Pt care transferred to [facility]. .................. .................. .................. .................. .................. .................. .................. ............... Disposition: Fulfilled Meena Branch MD [address] [facility],[address], [place], [address], [place] 04/13/2024 17:19:46 OBGyn Episode No OBEpisode recorded.
[2025-06-21 13:42] LABS: Alanine Aminotransferase 13 U/L (0-31); Albumin Level 4.2 g/dL (3.5-5.0); Alkaline Phosphatase 82 U/L (39-117); Anion Gap 11 (12-20); Aspartate Amino Transferase 27 U/L (5-31); Blood Urea Nitrogen 12 mg/dL (9-16); Calcium 9.0 mg/dL (8.4-10.2); Carbon Dioxide 26 mmol/L (22-29); Chloride 108 mmol/L (96-108); Cholesterol 228 mg/dL (<200); Estimated Glomerular Filt Rate 55; HDL Cholesterol 48 mg/dL (>40); Potassium 3.6 mmol/L (3.3-5.1); Sodium 141 mmol/L (135-145); Total Protein 7.3 g/dL (6.5-8.0); Triglycerides 254 mg/dL (<150)
== END 2025-06-21 10:24 | disposition home or self-care (01) ==
LOC: HO.HHCX 10:23
PROVIDERS: Internal Medicine; PCP Internal Medicine Geriatric Medicine; Visit Provider Internal Medicine Geriatric Medicine
DX: Z01.818 Encounter for other preprocedural examination (principal); Z13.6 Encounter for screening for cardiovascular disorders; M25.512 Pain in left shoulder; G89.29 Other chronic pain; R73.9 Hyperglycemia, unspecified; Z85.3 Personal history of malignant neoplasm of breast
CPT/HCPCS: 36415; 73030; 80053; 80061; 83036; 85025

== ENCOUNTER → 2025-06-21 10:41 | Outpatient (BNV) | payer OTHER, SELFPAY | PROVIDERS: PCP Internal Medicine Geriatric Medicine; Visit Provider Radiology Diagnostic Radiology | DX: M25.512 Pain in left shoulder (principal); G89.29 Other chronic pain; Z85.3 Personal history of malignant neoplasm of breast | CPT/HCPCS: 73030 ==